=== PATIENT | female | born 1995 | race Caucasian/White ===

== ENCOUNTER 2018-10-18 13:44 | Emergency (ER) | payer OTHER, MEDICAID ==
[~2018-10-18] VITALS: Ht 160 cm; Wt 54.4 kg
[~2018-10-18 13:44] MED LIST: FLAGYL500 MG PO; NOHOMEMEDICATIONS
[2018-10-18] MEDS ORDERED: KEFLEX500 M1 PO (14:17)
[2018-10-18 14:33] VITALS: BP 120/70
== END 2018-10-18 14:33 | disposition home or self-care (01) ==
LOC: M.ERS 13:44
DX: S00.86XA Insect bite (nonvenomous) of other part of head, initial encounter (principal); L08.9 Local infection of the skin and subcutaneous tissue, unspecified; W57.XXXA Bitten or stung by nonvenomous insect and other nonvenomous arthropods, initial encounter; Y93.89 Activity, other specified; Y92.89 Other specified places as the place of occurrence of the external cause; Y99.8 Other external cause status